=== PATIENT | female | born 1975 | race American Indian/Alaskan Native ===

== ENCOUNTER 2017-05-19 13:29 | Emergency (ER) | payer OTHER ==
[2017-05-19 13:50] VITALS: BMI 38.7
[2017-05-19 13:52] VITALS: PULSE 80
[2017-05-19] MEDS ORDERED: Sodium Chloride 0.9% 1,000 ML IV ONE ×2 (16:51→16:52)
[2017-05-19 17:44] LABS: BASO # 0.1 K/uL (0.0-0.2); BASO % 0.6 % (0.0-2.0); EOS # 0.2 K/uL (0.0-0.7); EOS % 2.1 % (0.0-4.0); HEMATOCRIT 33.6 % (34.0-47.0); LYMPH # 2.5 K/uL (1.0-4.3); LYMPH % 28.1 % (20.0-40.0); MEAN CELL VOLUME 67.8 fL (81.0-99.0); MEAN PLATELET VOLUME 10.2 fL (7.2-11.7); MONO # 0.7 K/uL (0.0-0.8); NRBC % 0.1 % (0.0-2.0); RED CELL DISTRIBUTION WIDTH 16.7 % (11.5-14.5); WHITE BLOOD COUNT 8.8 K/uL (4.8-10.8)
[2017-05-19 17:48] LABS: CHLORIDE 105 mmol/L (98-107); SODIUM 141 mmol/L (132-148)
[2017-05-19 17:49] LABS: POTASSIUM 4.9 mmol/L (3.6-5.2)
[2017-05-19 17:50] LABS: GFR AFRICAN-AMERICAN > 60
[2017-05-19 17:51] LABS: ALB/GLOB RATIO 1.1 (1.0-2.1); ALKALINE PHOSPHATASE 66 U/L (38-126); ALT/SGPT 26 U/L (9-52); AST/SGOT 24 U/L (14-36); BILIRUBIN,TOTAL 0.6 mg/dL (0.2-1.3); BLOOD UREA NITROGEN 13 mg/dL (7-17); CALCIUM 8.8 mg/dl (8.6-10.4); CARBON DIOXIDE 29 mmol/L (22-30); GLUCOSE,RANDOM 90 mg/dL (65-105); TOTAL PROTEIN 7.5 g/dL (6.3-8.3)
--- NOTE | 2017-05-19 18:00 | C.PDOC ---
History Of Present Illness <Mariya Lozano - Last Filed: 05/19/17 18:59> <Kimberly Rg - Last Filed: 05/19/17 20:48> 41 y/o female presents to ED with complaints of abdominal pain for 2 days. Patient denies any medical problems and denies fever, chills, vomiting, diarrhea or any other complaints at this time (Mariya Lozano) Patient states that the pain is RLQ deep pin the pelvis and has been constant, not changing with position. She has no bladder or bowel changes and no nausea or vomiting. She did not take anything for the pain. (Kimberly Rg) History Per: Patient History/Exam Limitations: no limitations Onset/Duration Of Symptoms: Days Current Symptoms Are (Timing): Still Present <Mariya Lozano - Last Filed: 05/19/17 18:59> <Kimberly Rg - Last Filed: 05/19/17 20:48> Time Seen by Provider: 05/19/17 16:40 Chief Complaint (Nursing): Abdominal Pain Past Medical History Reviewed: Historical Data, Nursing Documentation, Vital Signs - Medical History PMH: HTN Surgical History: No Surg Hx Family History: States: No Known Family Hx - Social History Hx Alcohol Use: No Hx Substance Use: No - Immunization History Hx Tetanus Toxoid Vaccination: Yes Hx Influenza Vaccination: Yes Hx Pneumococcal Vaccination: Yes <Mariya Lozano - Last Filed: 05/19/17 18:59> Review Of Systems Constitutional: Negative for: Fever, Chills Gastrointestinal: Positive for: Abdominal Pain. Negative for: Nausea, Vomiting , Diarrhea Genitourinary: Negative for: Dysuria, Frequency Musculoskeletal: Negative for: Back Pain Skin: Negative for: Rash <Mariya Lozano - Last Filed: 05/19/17 18:59> Physical Exam - Physical Exam Appears: Non-toxic, No Acute Distress Skin: Normal Color, Warm, Dry, No Rash Head: Atraumatic, Normacephalic Eye(s): bilateral: Normal Inspection Oral Mucosa: Moist Neck: Normal ROM, Supple Chest: Symmetrical Cardiovascular: Rhythm Regular, No Murmur Respiratory: Normal Breath Sounds, No Rales, No Rhonchi, No Wheezing Gastrointestinal/Abdominal: Soft, Tenderness (low surapubic R>L), No Guarding, No Rebound Back: No CVA Tenderness, No Paraspinal Tenderness Neurological/Psych: Oriented x3 <Mariya Lozano Last Filed: 05/19/17 18:59> ED Course And Treatment - Laboratory Results Result Diagrams: 05/19/17 17:30 05/19/17 17:36 Lab Interpretation: No Acute Changes O2 Sat by Pulse Oximetry: 99 (RA) Pulse Ox Interpretation: Normal Progress Note: Treated with IVF NSS and toradol. CT abdomen ordered. On re- evaluation abdomen soft Reassessment Condition: Improved <Mariya Lozano - Last Filed: 05/19/17 18:59> - Laboratory Results Result Diagrams: 05/19/17 17:30 05/19/17 17:36 Lab Interpretation: No Acute Changes - CT Scan/US CT abd/pel Other Rad Studies (CT/US): Read By Radiologist, Radiology Report Reviewed CT/US Interpretation: EXAM: CT Abdomen and Pelvis Without Intravenous Contrast. EXAM DATE/TIME: Exam ordered 05/19/2017 4:51 PM. CLINICAL HISTORY: 41 years old, female; Pain; Abdominal pain; Flank; Lower. TECHNIQUE: Axial computed tomography images of the abdomen and pelvis without intravenous contrast. All CT. scans at this facility use one or more dose reduction techniques, viz.: automated exposure control;. ma/kV adjustment per patient size (including targeted exams where dose is matched to indication; i.e. head) ; or iterative reconstruction technique. Coronal and sagittal reformatted images were created and reviewed. COMPARISON: No relevant prior studies available. FINDINGS: Lower thorax: A groundglass nodule is noted in the posterior basal segment of the right lower lobe. measuring 3 mm (series 5 image 4). There is thickening of the interlobular septa in the dependent. portion of both lung bases. ABDOMEN: Liver: Unremarkable. Gallbladder and bile ducts: Unremarkable. No calcified stones. No ductal dilation. Pancreas: Unremarkable. No ductal dilation. Spleen: Unremarkable. No splenomegaly. Adrenals: Unremarkable. No mass. Kidneys and ureters: Unremarkable. No obstructing stones. No hydronephrosis. Stomach and bowel: There is a large amount of stool seen throughout the colon. No mucosal. thickening. Appendix: No findings to suggest acute appendicitis. PELVIS: Bladder: Unremarkable. No stones. Reproductive: Unremarkable as visualized. ABDOMEN and PELVIS: Intraperitoneal space: Unremarkable. No free air. No significant fluid collection. Bones/joints: No acute fracture. No dislocation. Soft tissues: There is a small umbilical hernia containing fat. Vasculature: Unremarkable. No abdominal aortic aneurysm. Lymph nodes: Unremarkable. No enlarged lymph nodes. IMPRESSION: 1. No radiopaque renal, ureteral or bladder calculi. No hydronephrosis. 2. 3 mm ground glass pulmonary nodule at the right lung base. No follow-up is necessary. 3. Thickening of the interlobular septa in the dependent portion of both lungs. This could be hypoventilatory change. Underlying interstitial lung disease not excluded. 4. Small umbilical hernia containing fat. Reevaluation Time: 20:46 Reassessment Condition: Improved (Patient seen sleeping quietly, in no distress. On exam her abdomen is soft without tenderness, guarding or rigidity.) <Kimberly Rg - Last Filed: 05/19/17 20:48> Medical Decision Making <Mariya Lozano - Last Filed: 05/19/17 18:59> <Kimberly Rg - Last Filed: 05/19/17 20:48> Medical Decision Making: Plan: * ct scan * test (Mariya Lozano) Disposition Counseled Patient/Family Regarding: Studies Performed, Diagnosis, Need For Followup - Disposition Disposition Time: 19:00 - POA Present On Arrival: None <Mariya Lozano - Last Filed: 05/19/17 18:59> Counseled Patient/Family Regarding: Studies Performed, Diagnosis, Need For Followup, Rx Given - Disposition Disposition Time: 20:47 <Kimberly Rg - Last Filed: 05/19/17 20:48> - Disposition Referrals: Abram Floyd MD [Staff Provider] - Disposition: HOME/ ROUTINE Condition: STABLE Prescriptions: Naproxen [Naprosyn] 1 tab PO BID PRN #25 tab PRN Reason: Pain Instructions: Pelvic Pain in Women (ED) Forms: [employer] [facility] (Ecuadorean) - Clinical Impression Clinical Impression: Abdominal pain - PA / APPRAISAL COORDINATOR / Resident Statement MD/DO has reviewed & agrees with the documentation as recorded. - Scribe Statement The provider has reviewed the documentation as recorded by the Scribe <Mariya Lozano - Last Filed: 05/19/17 18:59> <Kimberly Rg - Last Filed: 05/19/17 20:48> - Scribe Statement Kelsi Dalton All medical record entries made by the Scribe were at my direction and personally dictated by me. I have reviewed the chart and agree that the record accurately reflects my personal performance of the history, physical exam, medical decision making, and the department course for this patient. I have also personally directed, reviewed, and agree with the discharge instructions and disposition. (Mariya Lozano) Physician Patient Turnover Patient Signed Over To: Kimberly Rg Handoff Comments: pending CT abdomen <Mariya Lozano - Last Filed: 05/19/17 18:59>
[2017-05-19 18:22] LABS: RBC URINE 4 /hpf (0-3); URINE BACTERIA RARE (<OCC); URINE BILIRUBIN NEGATIVE (NEGATIVE); URINE BLOOD NEGATIVE (NEGATIVE); URINE COLOR Yellow (YELLOW); URINE GLUCOSE (UA) NORMAL (Normal); URINE KETONE NEGATIVE (NEGATIVE); URINE LEUKOCYTE ESTERASE 1+ Leu/uL (Negative); URINE PROTEIN 1+ mg/dL (NEGATIVE); WBC URINE 20 /hpf (0-5)
--- NOTE | 2017-05-19 20:36 | CT ---
EXAM: CT Abdomen and Pelvis Without Intravenous Contrast EXAM DATE/TIME: Exam ordered 05/19/2017 4:51 PM CLINICAL HISTORY: 41 years old, female; Pain; Abdominal pain; Flank; Lower TECHNIQUE: Axial computed tomography images of the abdomen and pelvis without intravenous contrast. All CT scans at this facility use one or more dose reduction techniques, viz.: automated exposure control; ma/kV adjustment per patient size (including targeted exams where dose is matched to indication; i.e. head); or iterative reconstruction technique. Coronal and sagittal reformatted images were created and reviewed. COMPARISON: No relevant prior studies available. FINDINGS: Lower thorax: A groundglass nodule is noted in the posterior basal segment of the right lower lobe measuring 3 mm (series 5 image 4). There is thickening of the interlobular septa in the dependent portion of both lung bases. ABDOMEN: Liver: Unremarkable. Gallbladder and bile ducts: Unremarkable. No calcified stones. No ductal dilation. Pancreas: Unremarkable. No ductal dilation. Spleen: Unremarkable. No splenomegaly. Adrenals: Unremarkable. No mass. Kidneys and ureters: Unremarkable. No obstructing stones. No hydronephrosis. Stomach and bowel: There is a large amount of stool seen throughout the colon. No mucosal thickening. Appendix: No findings to suggest acute appendicitis. PELVIS: Bladder: Unremarkable. No stones. Reproductive: Unremarkable as visualized. ABDOMEN and PELVIS: Intraperitoneal space: Unremarkable. No free air. No significant fluid collection. Bones/joints: No acute fracture. No dislocation. Soft tissues: There is a small umbilical hernia containing fat. Vasculature: Unremarkable. No abdominal aortic aneurysm. Lymph nodes: Unremarkable. No enlarged lymph nodes. IMPRESSION: 1. No radiopaque renal, ureteral or bladder calculi. No hydronephrosis. 2. 3 mm ground glass pulmonary nodule at the right lung base. No follow-up is necessary. 3. Thickening of the interlobular septa in the dependent portion of both lungs. This could be hypoventilatory change. Underlying interstitial lung disease not excluded. 4. Small umbilical hernia containing fat.
[2017-05-19 21:29] VITALS: BP 130/82; RESP 20; TEMP 98.2; O2SAT 97
== END 2017-05-19 21:30 | disposition home or self-care (01) ==
LOC: C.ER 13:29
DX: R10.31 Right lower quadrant pain (principal)
CPT/HCPCS: 74176; 80053; 81001; 83690; 84703; 85025; 96361; 96374; 99284; J1885; J7040